=== PATIENT | male | born 1950 | race Caucasian/White ===

== ENCOUNTER 2021-05-07 11:50 | Observation (INO) | payer BC, MEDICARE ==
[~2021-05-07] VITALS: Ht 182.9 cm; Wt 98.4 kg
[2021-05-07] VITALS (19 sets, daily range): BP systolic 110–140; BP diastolic 57–82
[2021-05-07] MEDS ORDERED: 0.9%NACL 1000ML 1,000 ML IV ONE (12:30)
[2021-05-07] MEDS ORDERED: FAMOTIDINE 20MG VIAL IV ONE (12:30)
[2021-05-07 12:40] LABS: APPEARANCE,URINE Clear (CLEAR); BILIRUBIN,URINE Negative (NEGATIVE); COLOR,URINE Yellow (YELLOW); GLUCOSE, URINE (UA) Negative (NEGATIVE); KETONES,URINE Negative (NEGATIVE); LEUKOCYTE ESTERASE ,URINE Negative (NEGATIVE); NITRATE,URINE Negative (NEGATIVE); OCCULT BLOOD,URINE Negative (NEGATIVE); PROTEIN,URINE Negative (NEGATIVE)
[2021-05-07 12:40] LABS: BASOPHILS % (AUTO) 0.5 % (0.0-5.0); EOSINOPHILS % (AUTO) 0.6 % (0.0-8.0); LYMPHOCYTES % (AUTO) 7.1 % (21.0-51.0); MEAN CORPUSCULAR HEMOGLOBIN 30.8 pg (27.0-33.0); MEAN CORPUSCULAR HGB CONC 33.9 g/dL (32.0-36.0); MEAN CORPUSCULAR VOLUME 90.9 fL (79-99); MONOCYTES % (AUTO) 2.9 % (3.0-13.0); NEUTROPHILS % (AUTO) 88.3 % (40.0-77.0); PLATELET COUNT (AUTO) 201 K/uL (130-400); RED BLOOD CELL COUNT(AUTO) 5.06 MIL/uL (4.50-6.20); RED CELL DISTRIBUTION WIDTH 13.5 % (11.0-15.5); WHITE BLOOD COUNT (AUTO) 13.9 K/uL (4.8-10.8)
[2021-05-07 12:53] LABS: CREATININE 1.2 mg/dL (0.5-1.5); POTASSIUM 3.7 mmol/L (3.5-5.1)
[2021-05-07 12:59] LABS: ALBUMIN 3.7 g/dL (3.5-5.0); BILIRUBIN,TOTAL 0.7 mg/dL (0.2-1.0); TOTAL PROTEIN, SERUM 7.4 g/dL (6.0-8.3)
[2021-05-07] MEDS ORDERED: MORPHINE 4 MG SYG IV PRN (13:00)
[2021-05-07] MEDS ORDERED: ONDANSETRON 4MG INJ IVP ONE (13:00)
[2021-05-07] MEDS ORDERED: 0.9%NACL 50ML 50 ML IV ONE (14:00)
[2021-05-07] MEDS ORDERED: ZOSYN 3.375GM +NS 50ML IV ONE (14:00)
[2021-05-07] MEDS ORDERED: ONDANSETRON 4MG INJ IV PRN (14:00)
[2021-05-07] MEDS ORDERED: ACETAMINOPHEN 325 MG TAB PO PRN ×3 (14:00→16:00)
[2021-05-07] MEDS ORDERED: MORPHINE 2 MG SYG IV PRN ×2 (14:00→16:00)
[2021-05-07] MEDS ORDERED: LACTULOSE 20 GM/30 ML UDCUP PO PRN (14:00)
[2021-05-07] MEDS ORDERED: IPRATROPIUM/ALBUTEROL SULFATE 3 ML SOLUTION IH PRN (14:00)
[2021-05-07] MEDS ORDERED: LIDOCAINE PF 100MG/5ML (2%) SYRINGE 5ML ONE (14:17)
[2021-05-07] MEDS ORDERED: ROCURONIUM 10MG/1ML SYR 10 MG/ML ML ONE (14:18)
[2021-05-07] MEDS ORDERED: MIDAZOLAM HCL 1 MG/ML 2ML VIAL ONE ×2 (14:18→14:25)
[2021-05-07] MEDS ORDERED: ONDANSETRON 4MG INJ ONE (14:18)
[2021-05-07] MEDS ORDERED: PROPOFOL 10 MG/ML 20ML VIAL IV ONE (14:18)
[2021-05-07] MEDS ORDERED: FENTANYL CITRATE PF 50 MCG/1 ML 2ML VIAL ONE ×2 (14:19→15:32)
[2021-05-07] MEDS ORDERED: BUPIVACAINE/PF 0.5% 30ML VIAL ONE (14:22)
[2021-05-07] MEDS ORDERED: 0.9%NACL 50ML 50 ML IV SCH (14:30)
[2021-05-07] MEDS ORDERED: ZOSYN 3.375GM +NS 50ML IV SCH (14:30)
[2021-05-07] MEDS ORDERED: DEXAMETHASONE SOD PHOSPHATE 10MG/ML 1ML VIAL ONE (15:03)
[2021-05-07] MEDS ORDERED: KETOROLAC 30MG VIAL (30MG/ML) ONE (15:19)
[2021-05-07] MEDS ORDERED: GLYCOPYRROLATE 1 MG/5 ML SYRINGE ONE (15:25)
[2021-05-07] MEDS ORDERED: NEOSTIGMINE 5MG/5ML SYR IV ONE (15:25)
[2021-05-07] MEDS ORDERED: ACET1TAB25 PO (15:45)
[2021-05-07] MEDS ORDERED: HYDROCODONE/ACETAMINOPHEN 5/325 MG TAB PO PRN (16:00)
[2021-05-07] MEDS ORDERED: ONDANSETRON 4MG INJ IVP PRN (16:00)
[2021-05-07] MEDS ORDERED: PANTOPRAZOLE 40 MG/VIAL IVP SCH (16:44)
[2021-05-07] MEDS ORDERED: ZOSYN 3.375GM+NS 50ML 50 ML IV SCH ×2 (21:00)
[2021-05-07] MEDS: ZOSYN 3.375GM +NS 50ML IV SCH (22:04)
[2021-05-07] MEDS: FAMOTIDINE 20MG VIAL IV SCH (22:04)
[2021-05-07] MEDS: 0.9%NACL 50ML 50 ML IV SCH (22:05)
[2021-05-07] MEDS: PHARMACY COMMUNICATION MISC SCH (23:00)
[2021-05-08] MEDS: LACTATED RINGERS 1000ML 1,000 ML IV SCH ×2 (00:39→10:15)
[2021-05-08 04:00] VITALS: BP 124/72
[2021-05-08 05:48] LABS: BASOPHILS % (AUTO) 0.3 % (0.0-5.0); EOSINOPHILS % (AUTO) 0.8 % (0.0-8.0); HEMATOCRIT 38.6 % (42-54); LYMPHOCYTES % (AUTO) 16.5 % (21.0-51.0); MEAN CORPUSCULAR HEMOGLOBIN 30.8 pg (27.0-33.0); MEAN CORPUSCULAR HGB CONC 33.9 g/dL (32.0-36.0); MEAN CORPUSCULAR VOLUME 90.8 fL (79-99); MONOCYTES % (AUTO) 7.4 % (3.0-13.0); NEUTROPHILS % (AUTO) 74.5 % (40.0-77.0); PLATELET COUNT (AUTO) 180 K/uL (130-400); RED BLOOD CELL COUNT(AUTO) 4.25 MIL/uL (4.50-6.20); RED CELL DISTRIBUTION WIDTH 13.4 % (11.0-15.5)
[2021-05-08] MEDS: ZOSYN 3.375GM +NS 50ML IV SCH ×2 (06:11→13:00)
[2021-05-08] MEDS: 0.9%NACL 50ML 50 ML IV SCH ×2 (06:12→13:00)
[2021-05-08 06:58] LABS: CREATININE 1.3 mg/dL (0.5-1.5); POTASSIUM 4.1 mmol/L (3.5-5.1)
[2021-05-08 07:00] VITALS: BP 128/74
[2021-05-08] MEDS: PHARMACY COMMUNICATION MISC SCH ×2 (07:00→13:35)
[2021-05-08] MEDS ORDERED: AMOX-426 PO (07:17)
[2021-05-08] MEDS: FAMOTIDINE 20MG VIAL IV SCH (09:00)
[2021-05-08] MEDS: 0.9%NACL 1000ML 1,000 ML IV SCH ×2 (10:00)
== END 2021-05-08 14:08 | disposition home or self-care (01) ==
LOC: EDH 11:50 → EDHIP 13:48 → 3DH 17:16
PROVIDERS: ADMIT Hospitalist; ATTEND Hospitalist
DX: K35.80 Unspecified acute appendicitis (principal); D72.829 Elevated white blood cell count, unspecified; R56.9 Unspecified convulsions; J45.909 Unspecified asthma, uncomplicated; Z79.899 Other long term (current) drug therapy; Z98.890 Other specified postprocedural states
CPT/HCPCS: 36415 ×2; 44970; 74176; 80048; 80053; 81003; 83690; 84484; 85025 ×2; 87088; 96361; 96365; 96366 ×3; 96375 ×2; 96376; 99284; A4215; A4600; A4649 ×4; A4930; A6206; C1769 ×3; C9113; G0378 ×23; J1100; J1885; J2001; J2250 ×2; J2405; J2543 ×3; J2704; J2710; J3010 ×2; J3490 ×4; J7030 ×2; J7120

== ENCOUNTER → 2023-12-03 | Outpatient (CLI) | payer OTHER ==
[~2023-12-03] MED LIST: ACET-2079 PO; AMOX-426 PO
== END | disposition home or self-care (01) ==
LOC: RAH 13:13
PROVIDERS: ATTEND Internal Medicine Cardiovascular Disease
DX: R60.9 Edema, unspecified (principal)
CPT/HCPCS: 93970

== ENCOUNTER → 2023-12-19 | Outpatient (CLI) | payer OTHER | END | disposition home or self-care (01) | LOC: RAH 12:29 | PROVIDERS: ATTEND Internal Medicine Cardiovascular Disease | DX: I34.81 Nonrheumatic mitral (valve) annulus calcification (principal); R60.9 Edema, unspecified | CPT/HCPCS: 93306 ==